=== PATIENT | male | born 1960 | race African-American/Black ===

== ENCOUNTER 2025-03-10 00:37 | Emergency (ER) | payer BC, OTHER ==
[~2025-03-10] VITALS: Ht 175.3 cm; Wt 84.2 kg
[2025-03-10 00:42] VITALS: BP 220/112; PULSE 72; RESP 18; TEMP 36.8; O2SAT 95; O2SAT 97
[2025-03-10] MEDS: LIDOCAINE 5% PATCH TOP SCH (02:19)
[2025-03-10] MEDS: KETOROLAC 15MG/ML VIAL IM ONE (02:19)
[2025-03-10] MEDS ORDERED: LIDO-53 TP (02:46)
[2025-03-10] MEDS ORDERED: NAPR-1176 MT (02:46)
== END 2025-03-10 03:11 | disposition home or self-care (01) ==
LOC: ER 00:37
DX: M79.602 Pain in left arm (principal); I10 Essential (primary) hypertension; Z79.1 Long term (current) use of non-steroidal anti-inflammatories (NSAID); W22.8XXA Striking against or struck by other objects, initial encounter; Y99.0 Civilian activity done for income or pay; Y92.89 Other specified places as the place of occurrence of the external cause; Y93.89 Activity, other specified
CPT/HCPCS: 99283; 73090; 96372; J1885